=== PATIENT | female | born 1975 | race Two or more races ===

== ENCOUNTER 2023-06-07 18:34 | Emergency (ER) | payer OTHER ==
[~2023-06-07] VITALS: Ht 162.6 cm; Wt 65.8 kg
[2023-06-07] MEDS ORDERED: KETOROLAC TROMETHAMINE 30 MG VIAL IM ONE (20:15)
== END 2023-06-07 21:20 | disposition home or self-care (01) ==
LOC: ER 18:34
DX: S70.12XA Contusion of left thigh, initial encounter (principal); X58.XXXA Exposure to other specified factors, initial encounter; Y93.89 Activity, other specified; Y92.832 Beach as the place of occurrence of the external cause; Y99.9 Unspecified external cause status; Z88.8 Allergy status to other drugs, medicaments and biological substances